=== PATIENT | female | born 1950 | race Caucasian/White ===

== ENCOUNTER → 2018-04-05 | Outpatient (CLI) | payer MEDICARE, OTHER ==
--- NOTE | 2018-04-05 13:25 | RAD ---
CHEST PA LATERAL History: Shortness of breath and cough COMPARISON: March 25, 2015 image but no report. FINDINGS: Heart size is not enlarged. The aorta is tortuous, also noted on prior study. No evidence of pneumothorax. No focal airspace consolidation. No significant pleural effusion. Mild markings in both lung bases, likely mild atelectasis or fibrosis. IMPRESSION: No consolidating infiltrate. Mild markings in both lung bases, likely mild arthrosis or atelectasis. Electronically signed by: Giovani Miranda MD (04/05/2018 1:21 PM) [facility]
== END | disposition home or self-care (01) ==
LOC: PMG 11:48
PROVIDERS: ATTEND Physician Assistant Medical
DX: J40 Bronchitis, not specified as acute or chronic (principal)
CPT/HCPCS: 71046